=== PATIENT | female | born 1975 | race Caucasian/White ===

== ENCOUNTER 2019-10-26 15:50 | Emergency (ER) | payer SELFPAY ==
[2019-10-26 16:21] LABS: Bacteria/HPF 2+ HPF (None Seen); Bilirubin Negative (Negative); Blood, Urine Trace (Negative); Clarity Turbid (Clear); Glucose, Urine (Dipstick) Normal (Negative); Leukocyte 75 Leu/uL (Negative); Nitrite 1+ (Negative); Protein, Urine (Dipstick) 20 mg/dL (Neg-Trace); RBC/HPF 0-3 HPF (0-3); Urobilinogen Normal mg/dL (Less than 2); WBC/HPF Greater than 50 HPF (0-3)
[2019-10-26 16:42] LABS: #Basophils 0.1 thou/uL (0.0-0.2); #Eosinphils 0.3 thou/uL (0.0-0.7); #Lymphocytes 2.4 thou/uL (1.20-3.40); #Monocytes 0.4 thou/uL (0.11-0.59); #Neutrophils 4.1 thou/uL (1.40-6.50); %Basophils 1.6 % (0.0-1.0); %Eosinophils 4.1 % (0.0-10.0); %Lymphocytes 32.5 % (21.0-51.0); %Monocytes 5.7 % (0.0-10.0); %Neutrophils 56.1 % (42.0-75.0); Hemoglobin 11.1 g/dL (12.0-16.0); Mean Corpuscular HGB CONC 33.4 g/dL (32.0-36.0); Mean Corpuscular Hemoglobin 34.2 pg (27.0-31.0); Mean Platelet Volume 8.1 fL (7.4-10.4); Platelet Count 218 thou/uL (130-400); RBC Distribution Width 13.6 % (11.5-14.5); Red Blood Cell (RBC) Count 3.23 mill/uL (4.20-5.40); White Blood Cell (WBC) Count 7.4 thou/uL (4.8-10.8)
[2019-10-26] MEDS ORDERED: Naloxone HCl 0.4 mg/ml Vial ONE (16:43)
[2019-10-26] MEDS ORDERED: cefTRIAXone\\ROCEPHIN 2 GM VIAL ONE (16:43)
[2019-10-26 16:53] LABS: Amphetamine Detected (NotDetected); Barbiturates Screen Not Detected (NotDetected); Benzodiazepine Screen Detected (NotDetected); Cocaine Metabolite Screen Not Detected (NotDetected); Medtox Control Line Valid? VALID (VALID); Medtox Reader # READER 1; Methadone Detected (NotDetected); Methamphetamine Detected (NotDetected); Opiate Screen Detected (NotDetected); Oxycodone Screen Not Detected (NotDetected); Phencyclidine (PCP) Not Detected (NotDetected); THC/Cannabinoid Screen Not Detected (NotDetected); Tricyclic Screen Not Detected (NotDetected)
[2019-10-26 16:59] LABS: BHCG - Serum Negative (NEGATIVE); Pregs Control Background? CLEAR/WHITE (CLR/WHITE); Pregs Control Bar Appear? YES (CONTROL BAR)
[2019-10-26 17:01] LABS: ALT (SGPT) 16 U/L (8-55); AST (SGOT) 46 U/L (5-34); Albumin 4.7 g/dL (3.5-5.0); Alkaline Phosphatase 76 U/L (40-110); Anion Gap 15 mmol/L (10-20); BUN (Urea Nitrogen) 22 mg/dL (7.0-18.7); Bilirubin, Total 0.4 mg/dL (0.2-1.2); Calc. Creatinine Clearance 0 mL/min (70-130); Calcium 9.9 mg/dL (7.8-10.44); Carbon Dioxide 20 mmol/L (22-29); Chloride 105 mmol/L (98-107); Estimated GFR-MDRD 42; Globulin 3.2 g/dL (2.4-3.5); Glucose 140 mg/dL (70-105); Lipase 35 U/L (8-78); Potassium 3.7 mmol/L (3.5-5.1); Protein, Total 7.9 g/dL (6.0-8.3); Sodium 136 mmol/L (136-145)
[2019-10-26 18:10] LABS: Acetaminophen Less than 6.0 mcg/mL (10.0-30.0); Alcohol Less than 10 mg/dL (Less than 10); Salicylate Less than 8.0 mg/dL (15.0-30.0)
--- NOTE | 2019-10-26 20:21 | CT ---
CT OF THE ABDOMEN AND PELVIS WITHOUT IV CONTRAST: 10/26/19 INDICATION: 44-year-old female with flank pain. COMPARISON: None. FINDINGS: There is mild bibasilar subsegmental atelectasis. There is an endovascular stent within the distal thoracic aorta and proximal suprarenal abdominal aor ta. 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 The retroperitoneal fat is preserved. There is a 4 mm nonobstructing calculus within the mid pole of the left kidney. No right renal calcul us is evident. No ureteral calculus or hydronephrosis is demonstrated. The unopacified liver, gallbladder, pancreas, spleen, and adrenal glands appear within normal limits. Unopacified large and small bowel are unremarkable appearing. There is a normal appendix. Bladder, rectum, and perirectal soft tissues are unremarkable appearing. No definite acute osseous ab normality is demonstrated. There is scattered degenerative and osteoarthritic change. IMPRESSION: 1. Left nephrolithiasis. No ureteral calculus or hydronephrosis demonstrated. 2. Endovascular stent involving the distal thoracic aorta and suprarenal abdominal aorta with mi ld aneurysmal dilatation of the distal thoracic aorta and moderate aneurysmal dilatation of the supra renal abdominal aorta. 3. Small calcification seen eccentrically within the distal infrarenal abdominal aorta is suspic ious for a chronic appearing dissection flap. The lack of IV contrast limits further evaluation. 4. Normal appendix. 5. Other chronic findings as above. POS: BH
--- NOTE | 2019-10-29 14:59 | EKG ---
Test Reason : Blood Pressure : / mmHG Vent. Rate : 079 BPM Atrial Rate : 079 BPM P-R Int : 196 ms QRS Dur : 098 ms QT Int : 426 ms P-R-T Axes : 029 -18 042 degrees QTc Int : 488 ms Normal sinus rhythm Minimal voltage criteria for LVH, may be normal variant Prolonged QT Abnormal ECG Confirmed by MAURO FOSS, YOAN Nazario ([id number]), health editor DAVID FLETCHER ([id number]) on 10/29/2019 2:59:44 PM Referred By: Confirmed By:YOAN WADE MD
== END 2019-10-26 21:37 | disposition home or self-care (01) ==
LOC: ERS 15:50
DX: E86.0 Dehydration (principal); E86.1 Hypovolemia; N39.0 Urinary tract infection, site not specified; F15.10 Other stimulant abuse, uncomplicated; E11.9 Type 2 diabetes mellitus without complications; I10 Essential (primary) hypertension; E78.00 Pure hypercholesterolemia, unspecified; F41.9 Anxiety disorder, unspecified; F31.9 Bipolar disorder, unspecified; I71.9 Aortic aneurysm of unspecified site, without rupture; F17.210 Nicotine dependence, cigarettes, uncomplicated
CPT/HCPCS: 36415; 74176; 80053; 80306; 80307; 81003; 81015; 83690; 84703; 85025; 93005; 96365; 96375; J0696; J2310